=== PATIENT | male | born 1990 | race American Indian/Alaskan Native ===

== ENCOUNTER 2018-11-17 18:39 | Emergency (ER) | payer SELFPAY ==
[2018-11-17] MEDS ORDERED: ROCEPHIN IM ONE (19:09)
[2018-11-17] MEDS ORDERED: ZITHROMAX PO ONE (19:09)
[2018-11-17] MEDS ORDERED: XYLOCAINE 1% MPF 5 mL INFILTRATI ONE (19:09)
--- NOTE | 2018-11-17 19:09 | Emergency Department Report ---
ED Male HPI - General Chief complaint: Urogenital-Male Stated complaint: STD TREATMENT Time Seen by Provider: 11/17/18 19:08 Source: patient Mode of arrival: Ambulatory Limitations: No Limitations - History of Present Illness Initial comments: 28 y.o here with dysuria, has been having unprotected sex with girlfriend who recently tested positive for chlamydia. no fever, no flank pain. - Related Data Allergies Allergy/AdvReac Type Severity Reaction Status Date / Time No Known Allergies Allergy Unverified 11/17/18 19:10 ED Review of Systems ROS: Stated complaint: STD TREATMENT Other details as noted in HPI Comment: All other systems reviewed and negative Respiratory: denies: cough Cardiovascular: denies: chest pain Endocrine: denies: see HPI Gastrointestinal: denies: abdominal pain Genitourinary: dysuria ED Past Medical Hx - Past Medical History Previous Medical History?: No - Surgical History Additional Surgical History: eye surgery - Family History Family history: no significant - Social History Smoking Status: Never Smoker Substance Use Type: None ED Physical Exam - General Limitations: No Limitations General appearance: alert, in no apparent distress - Head Head exam: Present: atraumatic, normocephalic - Eye Eye exam: Present: normal appearance, PERRL Pupils: Present: normal accommodation - ENT ENT exam: Present: normal exam, normal orophraynx - Neck Neck exam: Present: normal inspection - Respiratory Respiratory exam: Present: normal lung sounds bilaterally - Cardiovascular Cardiovascular Exam: Present: regular rate, normal rhythm - GI/Abdominal GI/Abdominal exam: Present: soft, normal bowel sounds - Back Exam Back exam: Present: normal inspection, full ROM - Neurological Exam Neurological exam: Present: alert, oriented X3, CN II-XII intact - Skin Skin exam: Present: warm Critical care attestation.: If time is entered above; I have spent that time in minutes in the direct care of this critically ill patient, excluding procedure time. ED Disposition Clinical Impression: Chlamydial urethritis in male Disposition: DC-01 TO HOME OR SELFCARE Is pt being admited?: No Does the pt Need Aspirin: No Condition: Stable
[2018-11-17 19:10] VITALS: BP 134/68
== END 2018-11-17 19:43 | disposition home or self-care (01) ==
LOC: ED 18:39
DX: A56.01 Chlamydial cystitis and urethritis (principal); Z98.890 Other specified postprocedural states
CPT/HCPCS: 96372; 99282; J0696